=== PATIENT | male | born 1975 | race Caucasian/White ===

== ENCOUNTER 2021-03-23 10:38 | Day surgery (SDC) | payer BC ==
--- NOTE | 2021-03-23 10:37 | PCM.PREANE ---
Preanesthetic Assessment - Procedure Proposed Procedure: Excision of Mass lesions on L scalp, R Forehead and R forearm - Anesthesia/Transfusion/Family Hx Anesthesia History: Prior Anesthesia Without Reaction Family History of Anesthesia Reaction: No Transfusion History: Prior Transfusion Reaction - Review of Systems General: No Symptoms Pulmonary: No Symptoms ([facility] no CPAP yet, Smokes 1 PPD) Cardiovascular: No Symptoms Gastrointestinal: No Symptoms (GERD well controlled) Neurological: No Symptoms Other: Reports: None - Physical Assessment NPO Status Date: 03/23/21 NPO Status Time: 00:01 Height: 6 ft Weight: 101.605 kg ASA Class: 2 Mental Status: Alert & Oriented x3 Airway Class: Mallampati = 2 Dentition: Reports: Normal Dentition Thyro-Mental Finger Breadths: 3 Mouth Opening Finger Breadths: 3 ROM/Head Extension: Full Lungs: Clear to Auscultation, Normal Respiratory Effort Cardiovascular: Regular Rate, Regular Rhythm - Allergies Allergies/Adverse Reactions: Allergies Allergy/AdvReac Type Severity Reaction Status Date / Time No Known Allergies Allergy Verified 03/17/21 07:43 - Acknowledgements Anesthesia Type Planned: General Anesthesia Pt an Appropriate Candidate for the Planned Anesthesia: Yes Alternatives and Risks of Anesthesia Discussed w Pt/Guardian: Yes Pt/Guardian Understands and Agrees with Anesthesia Plan: Yes PreAnesthesia Questionnaire - Past Health History Medical/Surgical History: Denies Medical/Surgical History HEENT History: Reports: Other (See Below) Other HEENT History: "sometimes" wears glasses Cardiovascular History: Reports: None Respiratory History: Reports: Sleep Apnea Other Respiratory History: did home test and was positive for sleep apnea- has never had sleep study- no CPAP Gastrointestinal History: Reports: GERD Genitourinary History: Reports: None Musculoskeletal History: Reports: Back Pain, Chronic Neurological History: Reports: None Psychiatric History: Reports: None Endocrine/Metabolic History: Reports: None Hematologic History: Reports: None Immunologic History: Reports: None Oncologic (Cancer) History: Reports: None Dermatologic History: Reports: Other (See Below) Other Dermatologic History: occasional "jock itch" - Infectious Disease History Infectious Disease History: Reports: Chicken Pox - Past Surgical History Neurological Surgical History: Reports: None - SUBSTANCE USE Tobacco Use Status *Q: Current Every Day Tobacco User Tobacco Use Within Last Twelve Months: Cigarettes - HOME MEDS Home Medications: Home Meds Esomeprazole Magnesium [Nexium] 40 mg PO DAILY 02/03/21 [History] Ibuprofen 200 mg PO Q6H PRN 02/05/21 [History] Sildenafil Citrate [Viagra] 50 mg PO ASDIRECTED PRN 02/05/21 [History] - CURRENT (IN HOUSE) MEDS Current Meds: Current Medications Albuterol (Albuterol 0.083% 2.5 Mg/3 Ml Neb Soln) 2.5 mg NEB ONETIME PRN PRN Reason: Wheezing Droperidol (Droperidol 5 Mg/2 Ml Sdv) 0.625 mg IVPUSH ONETIME PRN PRN Reason: Nausea/Vomiting Fentanyl (Fentanyl 100 Mcg/2 Ml Sdv) 50 mcg IVPUSH Q5M PRN PRN Reason: Pain (mild 1-3) Hydromorphone HCl (Hydromorphone 1 Mg/Ml Syringe) 1 mg IVPUSH Q10M PRN PRN Reason: Pain (moderate 4-6) Lactated Ringer's (Ringers, Lactated) 1,000 mls @ 125 mls/hr IV ASDIRECTED KALYANI Metoclopramide HCl (Metoclopramide 10 Mg/2 Ml Sdv) 10 mg IVPUSH ONETIME PRN PRN Reason: Nausea/Vomiting Naloxone HCl (Naloxone 0.4 Mg/Ml Sdv) 0.1 mg IVPUSH ASDIRECTED PRN PRN Reason: Respiratory Depression Ondansetron HCl (Ondansetron 4 Mg/2 Ml Sdv) 4 mg IVPUSH ONETIME PRN PRN Reason: Nausea/Vomiting
[~2021-03-23 10:38] MED LIST: Albuterol 0.083% 2.5 MG/3 ML Neb Soln NEB PRN; HYDROmorphone 1 MG/ML Syringe IVPUSH PRN; Lactated Ringers 1,000 ML IV SCH; Metoclopramide 10 MG/2 ML SDV IVPUSH PRN; Naloxone 0.4 MG/ML SDV IVPUSH PRN; Ondansetron 4 MG/2 ML SDV IVPUSH PRN; fentaNYL 100 MCG/2 ML SDV IVPUSH PRN
[2021-03-23] MEDS ORDERED: Propofol 200 MG/20 ML SDV ONE (14:11)
[2021-03-23] MEDS ORDERED: Midazolam 1 MG/ML 2 ML SDV ONE (14:11)
[2021-03-23] MEDS ORDERED: Dexamethasone 4 MG/ML 5 ML MDV ONE (14:11)
[2021-03-23] MEDS ORDERED: fentaNYL 100 MCG/2 ML SDV ONE (14:11)
[2021-03-23] MEDS ORDERED: Dexmedetomidine 200 MCG/2 ML SDV ONE (14:11)
[2021-03-23] MEDS ORDERED: Bupivacaine 0.5% 30 ML SDV ONE (14:13)
[2021-03-23] MEDS ORDERED: Water For Injection, Sterile 20 ML ONE (14:14)
[2021-03-23] MEDS ORDERED: Bupivacaine 0.5% 10 ML SDV ONE (14:22)
[2021-03-23] MEDS ORDERED: ePHEDrine 50 MG/ML SDV ONE (14:51)
[2021-03-23] MEDS ORDERED: Ondansetron 4 MG/2 ML SDV ONE (14:53)
[2021-03-23] MEDS ORDERED: Ketorolac 30 MG/ML SDV ONE (14:53)
--- NOTE | 2021-03-23 15:43 | PCM.POSTAN ---
POST ANESTHESIA ASSESSMENT - MENTAL STATUS Mental Status: Alert, Oriented - VITAL SIGNS Vital Signs: Last Vital Signs Temp 97.3 F 03/23/21 10:54 Pulse 60 03/23/21 10:54 Resp 14 03/23/21 10:54 BP 123/84 03/23/21 10:54 Pulse Ox 99 03/23/21 10:54 - RESPIRATORY Respiratory Status: Respiratory Rate WNL, Airway Patent, O2 Saturation Stable - CARDIOVASCULAR CV Status: Pulse Rate WNL, Blood Pressure Stable - GASTROINTESTINAL GI Status: No Symptoms - PAIN Pain Score: 0 - POST OP HYDRATION Hydration Status: Adequate & Stable
--- NOTE | 2021-03-23 15:51 | PCM.OPNOTE ---
- General Post-Op/Procedure Note Date of Surgery/Procedure: 03/23/21 Operative Procedure(s): Excision 1 cm right forehead mass. Excision 16 mm, right forearm mass. Excision 1 cm recurrent left postauricular mass. Pre Op Diagnosis: Enlarging right forehead, right forearm, and recurrent left postauricular masses Post-Op Diagnosis: Same Anesthesia Technique: General LMA (ASA II) Primary Surgeon: Vu Hunter Fluid Replacement, Intraop: 1,500 EBL in mLs: 5 Condition: Good Free Text/Narrative:: DICTATION 193679 CPT CODE [id number]
--- NOTE | 2021-03-23 15:54 | PCM48HPAN ---
Post Anesthesia Note - EVALUATION WITHIN 48HRS OF ANESTHETIC Vital Signs in Normal Range: Yes Patient Participated in Evaluation: Yes Respiratory Function Stable: Yes Airway Patent: Yes Cardiovascular Function Stable: Yes Hydration Status Stable: Yes Pain Control Satisfactory: Yes Nausea and Vomiting Control Satisfactory: Yes Mental Status Recovered: Yes Vital Signs: Last Vital Signs Temp 96.8 F L 03/23/21 15:38 Pulse 73 03/23/21 15:48 Resp 23 H 03/23/21 15:48 BP 116/78 03/23/21 15:48 Pulse Ox 96 03/23/21 15:48 - COMMENTS/OBSERVATIONS Free Text/Narrative:: Pt doing well post=op. VSS. No apparent anesthetic complications. Dr. Eric Zuniga
[2021-03-23] MEDS ORDERED: Lactated Ringers 1,000 ML IV SCH (16:00)
--- NOTE | 2021-03-24 09:13 | OR ---
SURGEON: Vu Hunter M.D. DATE OF PROCEDURE: 03/23/2021 OPERATIONS PERFORMED: 1. Excision, 1 cm right forehead mass. 2. Excision, 16 mm right forearm mass. 3. Excision, recurrent 1 cm left postauricular mass. PRIMARY SURGEON: Vu Hunter M.D. ANESTHESIA: General LMA. ASA CLASSIFICATION: II. PREOPERATIVE DIAGNOSIS: Symptomatic masses of the right forehead, right elbow, and left postauricular area. POSTOPERATIVE DIAGNOSIS: Symptomatic masses of the right forehead, right elbow, and left postauricular area. ESTIMATED BLOOD LOSS: 5 mL. INTRAOPERATIVE FLUID REPLACEMENT: 1500 mL of crystalloid. DESCRIPTION OF PROCEDURE: The patient was taken to the operating room and placed on the operating table in the supine position. Time-out was called for appropriate identification of patient and procedure. All surgical sites had been marked prior to the patient entering the operating room. Time-out was called for appropriate identification of the patient and procedure. Following satisfactory placement of general anesthesia with placement of an LMA, the right forehead was prepped with Betadine solution. The skin was infiltrated with 0.5% Marcaine solution. Skin incision was made and deepened into the subcutaneous tissue where approximately 1 cm mass was identified. This was removed with a combination of sharp and blunt dissection. Hemostasis was obtained with the use of electrocautery. The specimen was packaged separately in formalin for histologic diagnosis. The incision was closed with subcuticular 4-0 Monocryl and dressed with antibiotic ointment. Our attention was now turned to the right forearm. The forearm was prepped with DuraPrep solution, and sterile drapes were applied. Again, the skin incision had been marked out and the skin was now infiltrated with 0.5% Marcaine solution. Skin incision was made and deepened through the subcutaneous tissue obtaining hemostasis with the use of electrocautery. The mass was circumferentially dissected and was under the superficial investing fascia. This clinically had the appearance of a lipoma and measured 16 mm in greatest dimension. Hemostasis was obtained with the use of electrocautery. Once that was accomplished, the incision was closed with subcuticular 4-0 Monocryl reinforced with Steri-Strips. Finally, our attention was turned to the left recurrent postauricular mass. The surgical site was again prepped with Betadine solution, and sterile drapes were applied. Again, the skin was infiltrated with 0.5% Marcaine solution and incision was then made. Hemostasis was obtained with the use of electrocautery. There was significant scarring in this area, but a lipoma of approximately 8 to 10 mm was encountered and removed in a piecemeal fashion. Bleeding sites were electrocoagulated. Again, the incision was closed with subcuticular 4-0 Monocryl and dressed with antibiotic ointment. Sponge, needle, and instrument counts were all correct. The patient tolerated the procedure well. Following emergence from anesthesia and extubation, the patient was taken to recovery room in stable condition. NEISHA FERNÁNDEZ /[id number] ERIBERTO
== END 2021-03-23 16:45 | disposition home or self-care (01) ==
LOC: MW.SDS 10:38
PROVIDERS: ATTEND Surgery
DX: D17.21 Benign lipomatous neoplasm of skin and subcutaneous tissue of right arm (principal); D17.0 Benign lipomatous neoplasm of skin and subcutaneous tissue of head, face and neck; G47.33 Obstructive sleep apnea (adult) (pediatric); F17.210 Nicotine dependence, cigarettes, uncomplicated; K21.9 Gastro-esophageal reflux disease without esophagitis; Z79.899 Other long term (current) drug therapy; Z90.49 Acquired absence of other specified parts of digestive tract
CPT/HCPCS: 21011; 25076; J1100; J1885; J2250; J2405; J2704; J3010; J3490; J7120; 00300

== ENCOUNTER 2021-10-26 06:19 | Day surgery (SDC) | payer BC ==
[2021-10-26] MEDS: Lactated Ringers 1,000 ML IV SCH (06:44)
[2021-10-26] MEDS ORDERED: Propofol 200 MG/20 ML SDV ONE ×3 (07:05→08:53)
[2021-10-26] MEDS ORDERED: Lidocaine 2% 5 ML SDV ONE (07:13)
[2021-10-26] MEDS ORDERED: Phenylephrine 1% 10 MG/ML SDV ONE (07:13)
[2021-10-26] MEDS ORDERED: fentaNYL 100 MCG/2 ML SDV ONE (08:00)
[2021-10-26] MEDS ORDERED: Lactated Ringers 1,000 ML IV SCH (09:30)
== END 2021-10-26 09:47 | disposition home or self-care (01) ==
LOC: MW.SDS 06:19
PROVIDERS: ATTEND Surgery
DX: D12.4 Benign neoplasm of descending colon (principal); K29.50 Unspecified chronic gastritis without bleeding; K31.7 Polyp of stomach and duodenum; K20.90 Esophagitis, unspecified without bleeding; K22.89 Other specified disease of esophagus; Z79.899 Other long term (current) drug therapy; Z90.49 Acquired absence of other specified parts of digestive tract; Z98.890 Other specified postprocedural states; F17.210 Nicotine dependence, cigarettes, uncomplicated
CPT/HCPCS: 00813; J2370; J2704; J3010; J7120

== ENCOUNTER → 2023-10-07 | Day surgery (SDC) | payer BC ==
[~2023-10-07] MED LIST changes: +Acetaminophen 1,000 MG in Premix Bag 1 BAG IV SCH; +Bupivacaine 0.5% 30 ML SDV ONE; +Dexamethasone 4 MG/ML 5 ML MDV ONE; +Famotidine 20 MG/2 ML SDV ONE; +Ketorolac 30 MG/ML SDV ONE; -Lactated Ringers 1,000 ML IV SCH; +Lidocaine 2% 11 ML Jelly Filled Syringe ONE; +Morphine 10 MG/ML SDV ONE; +Morphine 2 MG/ML SYRINGE IVPUSH PRN; +Ondansetron 4 MG/2 ML SDV ONE; +Propofol 200 MG/20 ML SDV ONE; +Rocuronium Bromide 50 MG/5 ML Syringe ONE; +Ropivacaine 0.5% 5 MG/ML 30 ML SDV ONE; +Sugammadex Sodium 200 MG/2 ML VIAL IV ONE; +ceFAZolin 2 GM Vial ONE; +ceFAZolin 2 GM in Sodium Chloride 0.9% 50 ML IV ONE; +droPERidol 5 MG/2 ML SDV IVPUSH PRN; +ePHEDrine 50 MG/ML SDV ONE; -fentaNYL 100 MCG/2 ML SDV IVPUSH PRN; +fentaNYL 250 MCG/5 ML SDV ONE; +fentaNYL 50 MCG/ML SDV IVPUSH PRN
[2023-10-07] MEDS: Pregabalin 75 MG Cap PO SCH (06:45)
[2023-10-07] MEDS: Scopalamine 1mg/3day Transdermal Patch TOP ONE (06:45)
[2023-10-07] MEDS: Lactated Ringers 1,000 ML IV SCH (07:00)
== END | disposition home or self-care (01) ==
LOC: MW.SDS 06:28
PROVIDERS: ATTEND Surgery
DX: K40.20 Bilateral inguinal hernia, without obstruction or gangrene, not specified as recurrent (principal); K21.9 Gastro-esophageal reflux disease without esophagitis; G47.30 Sleep apnea, unspecified; F17.210 Nicotine dependence, cigarettes, uncomplicated; Z79.899 Other long term (current) drug therapy
CPT/HCPCS: 49650; 64488; A9270; J0665; J0690; J1100; J1885; J2270; J2405; J2704; J2795; J3010; J3490; J7120; C1781